=== PATIENT | male | born 1945 | race Hispanic/Latino ===

== ENCOUNTER 2019-07-28 11:12 | Emergency (ER) | payer OTHER ==
[2019-07-28] MEDS ORDERED: ACETAMINOPHEN 325 MG TAB ONE (12:19)
== END 2019-07-28 15:02 | disposition home or self-care (01) ==
LOC: EDH 11:12
DX: S06.0X0A Concussion without loss of consciousness, initial encounter (principal); S16.1XXA Strain of muscle, fascia and tendon at neck level, initial encounter; S43.492A Other sprain of left shoulder joint, initial encounter; E11.9 Type 2 diabetes mellitus without complications; V49.40XA Driver injured in collision with unspecified motor vehicles in traffic accident, initial encounter; Y93.89 Activity, other specified; Y92.89 Other specified places as the place of occurrence of the external cause; Y99.8 Other external cause status
CPT/HCPCS: 70450; 72125